=== PATIENT | female | born 1975 | race Caucasian/White ===

== ENCOUNTER 2022-10-25 08:47 | Outpatient (CLI) | payer OTHER, SELFPAY | END 2022-10-25 08:48 | disposition home or self-care (01) | LOC: OP CLINIC 08:47 | PROVIDERS: PCP Physician Assistant Medical; Visit Provider Surgery | DX: Z12.11 Encounter for screening for malignant neoplasm of colon (principal); K63.5 Polyp of colon | CPT/HCPCS: 45385; 88305; 99153; J2250; J2405; J3010 ==

== ENCOUNTER 2023-02-01 20:23 | Outpatient (CLI) | payer OTHER, SELFPAY | END 2023-02-01 20:24 | disposition home or self-care (01) | LOC: LAB 20:24 | PROVIDERS: PCP Physician Assistant Medical; Visit Provider Orthopaedic Surgery Sports Medicine | DX: Z01.818 Encounter for other preprocedural examination (principal) | CPT/HCPCS: 36415; 86850; 86900; 86901 ==

== ENCOUNTER 2023-02-02 06:05 | Day surgery (SDC) | payer OTHER, SELFPAY ==
[2023-02-02] VITALS (26 sets, daily range): BP systolic 88–134; BP diastolic 54–85; PULSE 62–102; RESP 14–18; TEMP 36–36.6; O2SAT 94–100; BMI 32.0
[2023-02-02] MEDS: OXYCODONE (CR) 10 MG TAB.ER.12H PO (06:33)
[2023-02-02] MEDS: ACETAMINOPHEN 500 MG TABLET 1000 MG PO ×3 (06:33→20:10)
[2023-02-02] MEDS: SODIUM CHLORIDE 0.9 % (FLUSH) 10 ML SYRINGE IVF (06:45)
[2023-02-02] MEDS: LACTATED RINGERS 1000 ML 1,000 ML 100 ML IV ×3 (06:45→09:45)
[2023-02-02] MEDS: SCOPOLAMINE 1 MG/3 DAY PATCH 1 PATCH TRANSDERMA (07:15)
[2023-02-02] MEDS: MIDAZOLAM HCL 1 MG/ML inj IVP (07:18)
[2023-02-02] MEDS: fentaNYL 100 MCG/2 ML inj IVP (07:18)
--- NOTE | 2023-02-02 07:27 | CRLHL7_ITS ---
For Patients: As a result of the Cures Act, medical imaging exams and procedure reports are released immediately into your electronic medical record. You may view this report before your referring provider. If you have questions, please contact your health care provider. Indication: S/P TOTAL HIP ARTHROPLASTY Technique: AP hip centered pelvis and lateral view right hip Findings/Impression: Hardware from a right total hip arthroplasty is in satisfactory position. Bone alignment is normal. No sign of acute fracture. Postop changes are within normal limits. Dictated by Sree Wiggins MD @ 02/02/2023 10:59:27 AM (Electronically Signed)
--- NOTE | 2023-02-02 07:30 | CRLHL7_ITS ---
For Patients: As a result of the Cures Act, medical imaging exams and procedure reports are released immediately into your electronic medical record. You may view this report before your referring provider. If you have questions, please contact your health care provider. Indication: Hip replacement surgery Technique: AP hip fluoroscopic image. Fluoroscopy time 43.6 seconds. Findings/Impression: Hardware from a right total hip arthroplasty is in satisfactory position. Dictated by Sree Wiggins MD @ 02/02/2023 9:40:23 AM (Electronically Signed)
--- NOTE | 2023-02-02 07:32 | SUR.PREOP ---
TIME?OUT:?0717 PT/RN/MDA?VERIFICATION?OF?SURGICAL?SITE,?PROCEDURE,?AND?CONSENT OBTAINED?PRIOR?TO?INVASIVE?PROCEDURE. all in agreement.
[2023-02-02] MEDS: CEFAZOLIN 2 GM in 0.9 % SODIUM CHLORIDE Mini-bag 100 ML IVPB ×2 (07:40→14:30)
[2023-02-02] MEDS: TRANEXAMIC ACID 100 MG/ML INJ 1000 MG IV (07:45)
--- NOTE | 2023-02-02 09:20 | P.ORPRC_ITS ---
Procedure Note Date of procedure: 02/02/23 Procedure: PREOPERATIVE DIAGNOSIS: 1. Right hip osteoarthritis, severe, primary POSTOPERATIVE DIAGNOSIS: 1. Right hip osteoarthritis, severe, primary PROCEDURE: 1. Right total hip arthroplasty-anterior approach 2. 33642 - intraoperative fluoroscopy up to 1 hour. SURGEON: Leo Snyder MD. SYSTEMS APPLICATIONS PROGRAMMING LEAD: Quinton Ortiz Pac; Naty Chen Pac - Of note, a skilled assistant professor of physics was critical for this case to aid in patient positioning, tissue retraction, limb manipulation/positioning, and closure. ANESTHESIA: Spinal anesthetic EBL: 400 mL IMPLANTS: DePuy J&J uncemented total hip [place] cup size 48, hole eliminator, +0 neutral liner Actis stem, standard offset, size 3 +1 mm ceramic 32mm head COMPLICATIONS: None evident INDICATIONS: The patient is a pleasant 47-year-old who has experienced severe right hip pain and difficulty bearing weight. Workup included x-rays which revealed severe osteoarthrosis in the hip. Given the deformity, the dysfunction, and the pain, as well as the failure of nonoperative management, recommendation was made for surgery. FINDINGS: Full-thickness chondral loss broadly through the femoral head. Anterior and lateral acetabular osteophytes along with significant chondromalacia. Small effusion upon entering the joint DESCRIPTION OF PROCEDURE: Following a thorough discussion of risks, benefits, and alternatives consent was obtained and the right hip was marked. The patient was brought to the operating room and placed supine on the operating table. Induction of anesthesia was undertaken. 2 g IV Ancef and 1 g tranexamic acid was administered within 1 hr of incision preoperatively. Proper time-out was performed identifying proper patient, site, procedure. The operative extremity was prepped and draped in the appropriate sterile fashion using ChloraPrep after the patient was positioned on the [place] table with head in neutral alignment and all bony prominences well padded. C-arm fluoroscopic imaging was utilized to confirm proper pelvis rotation and position, and to get true AP films of both the contralateral left, and the affected right hip. This is for comparison. A longitudinal incision was made starting approximately 1 cm distal to the ASIS, and 3-4 cm lateral. The incision was extended distally aiming toward the lateral border the patella. Sharp incision through skin and bovie cautery through the subcutaneous tissue allowed identification of the TFL fascia. This was sharply divided, and the fascia bluntly released from the muscle fibers as we dissected medial. Upon coming to the medial border, we were able to retract the TFL laterally, and penetrated the deeper fascia and identify the crossing circumflex vessels. These were ligated/cauterized. The rectus was elevated from the capsule, and retractors placed laterally and medially along the femoral neck to help with visualization of the capsule. We then performed an inverted T capsulotomy. The capsule was tagged for later repair. Retractors were placed inside the capsule. The femoral neck was visualized after releasing medially down to the lesser trochanter, along the saddle laterally, and up onto the acetabulum. The femoral neck cut was made in line with our preoperative templating. The head was removed in a single piece, and sized. We turned our attention to acetabular preparation. Initially, the labrum was resected from around the perimeter, the pulvinar was excised, allowing us to visualize the false wall. We started the reaming with a 43 mm reamer. This was medialized down to the true wall. We then enlarged our reamers sequentially up to one size less than the selected cup size. We trialed at the same size and found it to have an excellent fit. The selected cup was then opened, inserted, and impacted in line with the goal of 40? of abduction, and 20-25? of anteversion. This was confirmed on C-arm fluoroscopic imaging to be in the appropriate/goal position. Once the cup was placed we placed a hole eliminator and a liner consistent with preop planning. Attention was turned to the femoral preparation. The limb was extended, externally rotated, and adducted. The posteromedial capsule was released, as retractors were placed allowing excellent access to the proximal femur. Initially a box spinner was followed by canal finder followed by various broaches. We broached sequentially up to the size noted above, found it to have excellent rotational control, and trialing various heads and necks, revealed that appropriate neck offset, and the above noted head size provided the greatest stability, and yarsanism of length, and offset. C-arm fluoroscopic imaging confirmed position of the stem, as well as leg lengths, which were compared with the pre procedure all fluoroscopic images. Trial implants were removed, the real femoral stem inserted, as was the appropriate head. After reducing, the leg was placed through range of motion and stability was confirmed anterior, posterior, and lateral. A 3 min Betadine soak was then performed, and thorough irrigation with normal saline followed. Closure of the capsule was performed with #1 PDS. Bleeding was confirmed to be controlled at this stage, and the TFL fascia was closed with #0 strata fix. Subcutaneous, and subcuticular closure was performed with 2-0 Vicryl and 4-0 Monocryl, respectively. Dressings were applied, and the patient was awoken from anesthesia and transferred the PACU in stable condition. A skilled assistant professor of physics was critical for this case to aid in patient positioning, tissue retraction, acetabular and proximal femoral exposure, limb manipulation/positioning, dislocation/relocation, patient safety, and closure. PLAN: 1. Weight bear as tolerated operative extremity. 2. Single dose of perioperative antibiotics. 3. Ice. 4. PT/OT consults for ambulation assistance/mobility education. 5. DVT prophylaxis with at SCDs, Evin Hose, and Xarelto x5 days followed by aspirin for a total of 1 month.
[2023-02-02] MEDS: fentaNYL 100 MCG/2 ML inj 50 MCG IVP ×2 (10:11→10:17)
--- NOTE | 2023-02-02 10:13 | W.ANESCHARGE ---
Anesthesia Charges Start Date/Time Anesthesia Start Date: 02/02/23 Anesthesia Start Time: 07:30 Stop Date/Time Anesthesia Stop Date: 02/02/23 Anesthesia Stop Time: 10:12
--- NOTE | 2023-02-02 10:22 | W.ANESCHARGE ---
Anesthesia Charges Start Date/Time Anesthesia Start Date: 02/02/23 Anesthesia Start Time: 07:30 Stop Date/Time Anesthesia Stop Date: 02/02/23 Anesthesia Stop Time: 10:12
--- NOTE | 2023-02-02 10:23 | W.PM.NB ---
Nerve Block Nerve Block Time Seen by Provider: 07:20 Date Seen: 02/02/23 Type of block requested by surgeon for post-operative analgesia: RENE/LFCN Side: right Time out performed: Yes Verification of patient name: Yes Verification of date of : Yes Site marking: site marked Name of person performing procedure: Garth Continuous monitoring Was continuous monitoring of O2 sat, B/P, youth nutritional monitor, recorded every 15 minutes?: Yes Procedure Checklist: sterile prep, needles and gloves Ultrasound guided. Images saved: Yes Medications given in 5ml increments after negative aspiration: Ropivicaine %: 0.5 mL: 30 Needle gauge: 20 Decadron (mg): 10 Precedex (mcg): 25 Patient tolerated procedure well: Yes Additional comments: Needle noted below psoas tendon needle noted adjacent to LFCN Block Charges Block Charge (with Pro Fee): Other Periph Nerve Block Use of Ultrasound Machine for Block: Yes- US Guidance/pain block
--- NOTE | 2023-02-02 13:04 | SUR.PHASEII ---
1240; Pt states she feels full when she point to her bladder. Pt tried using the bedpan without success. Pt stood by edge of bed with walker and 2 assist, pt didn't feel legs were strong enough to pivot to commode. Assisted pt back to bed. Bladder scan for 880cc. Straight cath for 1150cc.
[2023-02-02] MEDS: HYDROCODONE-ACETAMIN 5-325 MG 1 TAB PO (13:11)
--- NOTE | 2023-02-02 13:37 | SUR.PHASEII ---
Pt able to stand with SBA and walker to get dressed. As pt was getting back to bed, pt felt dizzy, nauseated, pale skin. Cold washcloth applied to head, VSS.
[2023-02-02] MEDS: hydrOXYzine pamoate 25 MG CAPSULE PO ×2 (15:08→20:08)
[2023-02-02 16:33] LABS: Hemoglobin* 11.4 gm/dL (12.0-16.0)
--- NOTE | 2023-02-02 16:45 | REH.OT ---
OT: Initially eval planned for 1300, however contacted by [facility] that patient was not yet appropriate to be seen. When returned, PT reports pt had limited activity tolerance with nausea and was unable to complete full PT session. Plan is no longer for return home on POD 0 and is going to med surg floor, OT eval rescheduled to 8/10 am.
[2023-02-02] MEDS: HYDROmorphone 0.5 mg/0.5 ml inj IVP (17:11)
[2023-02-02] MEDS: 0.9 % SODIUM CHLORIDE 250 ml 250 ML IV (17:11)
--- NOTE | 2023-02-02 17:26 | PM.IMPN1 ---
Progress Note: A&P Assessment and plan (1) Osteoarthritis of right hip: Problem details: moderate-severe Status: Chronic Plan 1. s/p Right total hip arthroplasty-anterior approach/ANESTHESIA: Spinal anesthetic/EBL:400 mL 2. Hx of Somatic dysfunction; ?depression/anxiety; continue wellbutrin Subjective Date Seen: 02/02/23 Interval history: PREOPERATIVE DIAGNOSIS: 1. Right hip osteoarthritis, severe, primary PROCEDURE: 1. Right total hip arthroplasty-anterior approach ANESTHESIA: Spinal anesthetic EBL: 400 mL The patient endorsed lightheadedness/dizziness following surgery Endorsed nausea no chest pain or sob Exam Narrative: Exam Narrative: Gen: no acute distress HEENT: NCAT EOMI mmm CV: RRR normal s1 s2 Lungs: CTAB Abd: Soft,nt, nd Neuro: Alert, oriented, CN grossly intact; nonfocal screening?exam Psych: appropriate affect MSK: age appropriate muscle mass; Left shoulder in sling Skin; Warm, dry no rash on face Const: Vital Signs, click to edit/add: Vital Signs - 24 hr 02/02/23 06:58 02/02/23 07:17 02/02/23 07:21 Temperature 97.3 F L Pulse Rate 69 65 66 Respiratory Rate 16 16 16 Blood Pressure 119/60 126/71 111/66 Blood Pressure [Le ft Arm] Pulse Oximetry 100 99 99 Oxygen Delivery Me thod Room Air Nasal Cannula Nasal Cannula Oxygen Flow Rate 2 2 02/02/23 10:08 02/02/23 10:15 02/02/23 10:20 Temperature 97.7 F Pulse Rate 76 67 74 Respiratory Rate 16 18 14 Blood Pressure 118/70 112/61 112/54 L Blood Pressure [Le ft Arm] Pulse Oximetry 94 98 100 Oxygen Delivery Me thod Room Air OxyMask OxyMask Oxygen Flow Rate 10 10 02/02/23 10:25 02/02/23 10:30 02/02/23 10:35 Temperature 97.5 F L Pulse Rate 62 62 69 Respiratory Rate 14 18 16 Blood Pressure 107/62 116/61 102/57 L Blood Pressure [Le ft Arm] Pulse Oximetry 100 99 99 Oxygen Delivery Me thod OxyMask Room Air Room Air Oxygen Flow Rate 6 02/02/23 10:41 02/02/23 10:45 02/02/23 10:48 Temperature 97.4 F L 96.8 F L Pulse Rate 67 68 65 Respiratory Rate 16 16 16 Blood Pressure 110/66 114/64 106/69 Blood Pressure [Le ft Arm] Pulse Oximetry 99 99 99 Oxygen Delivery Me thod Room Air Room Air Room Air Oxygen Flow Rate 02/02/23 11:00 02/02/23 11:15 02/02/23 11:30 Temperature Pulse Rate 69 102 H 70 Respiratory Rate 16 16 16 Blood Pressure 101/68 102/63 105/66 Blood Pressure [Le ft Arm] Pulse Oximetry 98 100 98 Oxygen Delivery Me thod Room Air Room Air Room Air Oxygen Flow Rate 02/02/23 11:45 02/02/23 11:46 02/02/23 11:49 Temperature Pulse Rate 93 80 73 Respiratory Rate 16 16 16 Blood Pressure 88/74 L 107/69 114/72 Blood Pressure [Le ft Arm] Pulse Oximetry 98 100 98 Oxygen Delivery Me thod Room Air Room Air Oxygen Flow Rate 02/02/23 12:17 02/02/23 13:28 02/02/23 13:34 Temperature 97.4 F L Pulse Rate 73 88 88 Respiratory Rate 16 16 16 Blood Pressure 116/77 111/66 129/73 Blood Pressure [Le ft Arm] Pulse Oximetry 98 98 95 Oxygen Delivery Me thod Room Air Room Air Room Air Oxygen Flow Rate 02/02/23 15:45 Temperature 97.0 F L Pulse Rate Respiratory Rate 18 Blood Pressure Blood Pressure [Le ft Arm] 134/77 Pulse Oximetry 99 Oxygen Delivery Me thod Room Air Oxygen Flow Rate Labs Labs: Laboratory Results - last 24 hr 02/02/23 16:29 Hgb 11.4 L
--- NOTE | 2023-02-02 18:40 | PC.NURSE ---
End of shift. pt has been very very pleasant. she came to the floor 1536. via a w/c. no nausea. pain 2-09/03. SL is patent. she is alert x4. vss. we did ortho BP and she got dizzy with standing. hgb was rechecked. she got a 250 cc bolus. she was able to walk to the BR with 2 assist walker and GB. and she was able to void. she is eating, drinking and voiding now with no problems. teds are on and plexi are also on. dressing is C/D/I and active ice is on. IS to 2500. pain meds switched to oxycodone per ortho pa. no nausea so far.
[2023-02-02] MEDS: OXYCODONE 5 MG TABLET PO (20:08)
[2023-02-02] MEDS: SENNOSIDES 1 TAB TABLET 2 TAB PO (20:09)
[2023-02-02] MEDS: buPROPion HCL 75 MG TABLET PO (20:09)
--- NOTE | 2023-02-02 22:44 | PC.NURSE ---
Nursing Care Hours: [id number] Pt this shift anxious beginning of shift d/t pain and nausea. Educated pt on use of cool washcloth on head and back of neck when feeling nausea coming on. Gave pain meds with antiemetic and soda crackers, interventions effective. Pain 6/10 decreased to 2/10 after pain meds, and pt denies nausea. Voiding in toilet. Dressing CDI, pedal pulses present bilat, CMS intact. VSS.
[2023-02-03] MEDS: OXYCODONE 5 MG TABLET PO ×4 (00:11→13:23)
[2023-02-03 02:00] VITALS: BP 96/53; PULSE 72; RESP 18; TEMP 36; O2SAT 94
[2023-02-03] MEDS: HYDROmorphone 0.5 mg/0.5 ml inj IVP (03:05)
[2023-02-03] MEDS: ACETAMINOPHEN 500 MG TABLET 1000 MG PO ×2 (04:04→10:05)
--- NOTE | 2023-02-03 05:47 | PC.NURSE ---
End of Shift: Pt AO throughout shift, pleasant and cooperative. Ambulatory with walker, GB, SBA. Continent with bladder, no BM throughout shift. Reported pain ranging 4-8/10. Pt at one point was in tears d/t level of pain and frustration with current condition. Pt is motivated to ambulate and participate in exercises, looking forward to PT today. Breakthrough pain controlled with IV dilauded.
[2023-02-03 08:14] VITALS: BP 143/58; PULSE 81; RESP 18; TEMP 37.3; O2SAT 97
[2023-02-03] MEDS: SENNOSIDES 1 TAB TABLET 2 TAB PO (08:18)
[2023-02-03] MEDS: buPROPion HCL 75 MG TABLET PO (08:18)
[2023-02-03] MEDS: RIVAROXABAN 10 MG TABLET PO (08:19)
[2023-02-03] MEDS: hydrOXYzine pamoate 25 MG CAPSULE PO ×2 (08:49→13:23)
--- NOTE | 2023-02-03 09:19 | P.ORPN_ITS ---
Subjective Subjective Date Seen: 02/03/23 Principal diagnosis: Status postop day 1, right total hip arthroplasty - anterior approach Interval history: Patient reports doing well. Nausea much improved. Pain appears to be under control as well. She was not expecting the postoperative pain to the degree she experienced. No acute events over night. Pain managed with scheduled and PRN medications, ice. DVT prophylaxis: Rivaroxaban, bilateral knee high Evin sto ckings, SCDs, walking. Denies fevers, chills, aches, N/V, CP, SOB/FISHER, or lightheadedness. Ortho Exam Narrative Exam Narrative: -Patient appears comfortable in recliner; no apparent acute distress -Alert and oriented times 3 -Operative hip swollen; soft tissues supple; no obvious erythema. Warmth appropriate -patient has street clothes on, surgical dressing region not assessed -Bilateral calves soft and supple; no significant swelling, edema, tenderness, erythema, discoloration, warmth, or palpable cords -2+ DP/PT pulses, intact dermatomes and myotomes distally (5/5 strength). Numbness about the lateral femoral cutaneous nerve distribution. Const Vital Signs, click to edit/add: Vital Signs - 24 hr 02/02/23 10:08 02/02/23 10:15 02/02/23 10:20 Temperature 97.7 F Pulse Rate 76 67 74 Pulse Rate [Right Pulse Oximeter] Pulse Rate [orthostatic lying Right Radial] Pulse Rate [orthostatic sitting Right Radial] Pulse Rate [orthostatic standing Right Radial] Respiratory Rate 16 18 14 Blood Pressure 118/70 112/61 112/54 L Blood Pressure [Left Arm] Blood Pressure [orthostatic lying] Blood Pressure [orthostatic sitting] Blood Pressure [orthostatic standing] Pulse Oximetry 94 98 100 Oxygen Delivery Method Room Air OxyMask OxyMask Oxygen Flow Rate 10 10 02/02/23 10:25 02/02/23 10:30 02/02/23 10:35 Temperature 97.5 F L Pulse Rate 62 62 69 Pulse Rate [Right Pulse Oximeter] Pulse Rate [orthostatic lying Right Radial] Pulse Rate [orthostatic sitting Right Radial] Pulse Rate [orthostatic standing Right Radial] Respiratory Rate 14 18 16 Blood Pressure 107/62 116/61 102/57 L Blood Pressure [Left Arm] Blood Pressure [orthostatic lying] Blood Pressure [orthostatic sitting] Blood Pressure [orthostatic standing] Pulse Oximetry 100 99 99 Oxygen Delivery Method OxyMask Room Air Room Air Oxygen Flow Rate 6 02/02/23 10:41 02/02/23 10:45 02/02/23 10:48 Temperature 97.4 F L 96.8 F L Pulse Rate 67 68 65 Pulse Rate [Right Pulse Oximeter] Pulse Rate [orthostatic lying Right Radial] Pulse Rate [orthostatic sitting Right Radial] Pulse Rate [orthostatic standing Right Radial] Respiratory Rate 16 16 16 Blood Pressure 110/66 114/64 106/69 Blood Pressure [Left Arm] Blood Pressure [orthostatic lying] Blood Pressure [orthostatic sitting] Blood Pressure [orthostatic standing] Pulse Oximetry 99 99 99 Oxygen Delivery Method Room Air Room Air Room Air Oxygen Flow Rate 02/02/23 11:00 02/02/23 11:15 02/02/23 11:30 Temperature Pulse Rate 69 102 H 70 Pulse Rate [Right Pulse Oximeter] Pulse Rate [orthostatic lying Right Radial] Pulse Rate [orthostatic sitting Right Radial] Pulse Rate [orthostatic standing Right Radial] Respiratory Rate 16 16 16 Blood Pressure 101/68 102/63 105/66 Blood Pressure [Left Arm] Blood Pressure [orthostatic lying] Blood Pressure [orthostatic sitting] Blood Pressure [orthostatic standing] Pulse Oximetry 98 100 98 Oxygen Delivery Method Room Air Room Air Room Air Oxygen Flow Rate 02/02/23 11:45 02/02/23 11:46 02/02/23 11:49 Temperature Pulse Rate 93 80 73 Pulse Rate [Right Pulse Oximeter] Pulse Rate [orthostatic lying Right Radial] Pulse Rate [orthostatic sitting Right Radial] Pulse Rate [orthostatic standing Right Radial] Respiratory Rate 16 16 16 Blood Pressure 88/74 L 107/69 114/72 Blood Pressure [Left Arm] Blood Pressure [orthostatic lying] Blood Pressure [orthostatic sitting] Blood Pressure [orthostatic standing] Pulse Oximetry 98 100 98 Oxygen Delivery Method Room Air Room Air Oxygen Flow Rate 02/02/23 12:17 02/02/23 13:28 02/02/23 13:34 Temperature 97.4 F L Pulse Rate 73 88 88 Pulse Rate [Right Pulse Oximeter] Pulse Rate [orthostatic lying Right Radial] Pulse Rate [orthostatic sitting Right Radial] Pulse Rate [orthostatic standing Right Radial] Respiratory Rate 16 16 16 Blood Pressure 116/77 111/66 129/73 Blood Pressure [Left Arm] Blood Pressure [orthostatic lying] Blood Pressure [orthostatic sitting] Blood Pressure [orthostatic standing] Pulse Oximetry 98 98 95 Oxygen Delivery Method Room Air Room Air Room Air Oxygen Flow Rate 02/02/23 15:45 02/02/23 17:58 02/02/23 19:00 Temperature 97.0 F L 98 F Pulse Rate Pulse Rate [Right Pulse Oximeter] 78 Pulse Rate [orthostatic lying Right Radial] 73 Pulse Rate [orthostatic sitting Right Radial] 77 Pulse Rate [orthostatic standing Right Radial] 90 Respiratory Rate 18 18 Blood Pressure Blood Pressure [Left Arm] 134/77 126/72 Blood Pressure [orthostatic lying] 121/82 Blood Pressure [orthostatic sitting] 132/79 Blood Pressure [orthostatic standing] 133/85 Pulse Oximetry 99 99 Oxygen Delivery Method Room Air Room Air Oxygen Flow Rate 02/02/23 21:32 02/02/23 22:16 02/02/23 23:00 Temperature Pulse Rate Pulse Rate [Right Pulse Oximeter] 78 70 Pulse Rate [orthostatic lying Right Radial] Pulse Rate [orthostatic sitting Right Radial] Pulse Rate [orthostatic standing Right Radial] Respiratory Rate 18 18 Blood Pressure Blood Pressure [Left Arm] Blood Pressure [orthostatic lying] Blood Pressure [orthostatic sitting] Blood Pressure [orthostatic standing] Pulse Oximetry Oxygen Delivery Method CPAP Oxygen Flow Rate 02/03/23 02:00 Temperature 96.8 F L Pulse Rate Pulse Rate [Right Pulse Oximeter] 72 Pulse Rate [orthostatic lying Right Radial] Pulse Rate [orthostatic sitting Right Radial] Pulse Rate [orthostatic standing Right Radial] Respiratory Rate 18 Blood Pressure Blood Pressure [Left Arm] 96/53 L Blood Pressure [orthostatic lying] Blood Pressure [orthostatic sitting] Blood Pressure [orthostatic standing] Pulse Oximetry 94 Oxygen Delivery Method Room Air Oxygen Flow Rate Assessment and Plan Assessment and plan (1) Osteoarthritis of right hip: Problem details: moderate-severe Status: Chronic (2) Status post total hip replacement, right: Problem details: POD 1 right total hip arthroplasty - anterior approach Status: Acute Plan - PT/OT consult for education and assistance. - Prescribed analgesics as needed - we will stay with oxycodone; dis continue/canceled [place] - DVT prophylaxis: Rivaroxaban for total 5 days, followed by 81 mg aspirin by mouth twice daily, bilateral knee high Evin Hose stockings and SCDs - Anticipation is for discharge to home with family today 02/03/2023 if the patient remains medically stable, pain is controlled, and they are safe with mobilization.
[2023-02-03 11:13] LABS: Basophils Absolute Auto 0.04 K/uL (0.00-0.30); Basophils Percent Auto 0.5 % (0.0-3.0); Eosinophils Absolute Auto 0.08 K/uL (0.00-0.50); Hematocrit 30.2 % (33.0-51.0); Hemoglobin* 10.2 gm/dL (12.0-16.0); Immature Granulocytes Abs Auto 0.01 K/uL (0.00-0.30); Immature Granulocytes Pct Auto 0.1 %; Lymphocytes Percent Auto 16.3 % (20-44); Mean Corpuscular HGB Conc 34 gm/dL (32-36); Mean Corpuscular Hemoglobin 31 pg (26-34); Mean Corpuscular Volume 92 fL (80-100); Monocytes Percent Auto 8.4 % (0.0-11.0); Neutrophils Percent Auto 73.7 % (42.0-72.0); Platelet Count* 162 K/uL (140-440); RDW Coefficient of Variation % 12.2 % (11.5-15.5); Red Blood Count 3.27 m/uL (4.00-5.20); White Blood Count* 8.24 K/uL (4.50-11.00)
[2023-02-03 11:15] LABS: Slide Review Reflex No
[2023-02-03] MEDS: SODIUM CHLORIDE 0.9 % (FLUSH) 10 ML SYRINGE IVF (11:16)
[2023-02-03] MEDS: KETOROLAC 30 MG/ML inj IVP (11:16)
[2023-02-03 11:26] LABS: Chloride* 102 mmol/L (96-114)
[2023-02-03 11:27] LABS: Potassium* 3.5 mmol/L (3.6-5.1); Sodium* 135 mmol/L (135-149)
[2023-02-03 11:29] LABS: Carbon Dioxide* 30 mmol/L (20-32); Creatinine* 0.6 mg/dL (0.5-1.5); Est. Creatinine Clearance* 93.82; Estimated Glomerular Filt Rate 110 ml/min
[2023-02-03 11:30] LABS: Blood Urea Nitrogen* 9 mg/dL (5-24); Calcium* 8.4 mg/dL (8.4-10.6); Glucose* 113 mg/dL (60-115)
--- NOTE | 2023-02-03 14:13 | PC.NURSE ---
Pt. ambulating with walker, transfer belt and SBA. Right hip dressing dry and intact. CMS intact. Despite pre-medicating with Oxycodone and scheduled Tylenol pt. experienced increased pain during and after therapy sessions this AM ~ Dr. Snyder notified ~ Toradol IV x 1 administered ~ pain decreased to 2/10. Pt. was able to comfortably participate in afternoon therapy session. Discharged home at 1341 via wheelchair with .
== END 2023-02-03 13:41 | disposition home or self-care (01) ==
LOC: OR 06:06 → MEDSURG 16:07
PROVIDERS: Family Medicine; Hospitalist; PCP Physician Assistant Medical; Visit Provider Orthopaedic Surgery Sports Medicine
PROC: (CPT 27130; principal; 2023-02-02 07:30)
DX: M16.11 Unilateral primary osteoarthritis, right hip (principal); G89.18 Other acute postprocedural pain; R42 Dizziness and giddiness
CPT/HCPCS: 27130; 1214; 36415; 64450; 73501; 76000; 76942; 80048; 85018; 85025; 97110; 97116; 97161; 97165; 97530; 97535; A9270; C1776; J0330; J0690; J1100; J1170; J1885; J2250; J2371; J2405; J2704; J3010; J7050; J7120

== ENCOUNTER 2023-03-03 10:00 | Outpatient (RCR) | payer OTHER, SELFPAY | END 2023-03-03 15:14 | disposition home or self-care (01) | PROVIDERS: PCP Physician Assistant Medical; Visit Provider Orthopaedic Surgery Sports Medicine | DX: M16.11 Unilateral primary osteoarthritis, right hip (principal); Z96.641 Presence of right artificial hip joint; M25.551 Pain in right hip; M62.81 Muscle weakness (generalized); R26.9 Unspecified abnormalities of gait and mobility; Z51.89 Encounter for other specified aftercare | CPT/HCPCS: 97110; 97116; 97161; 97164 ==

== ENCOUNTER 2025-02-27 15:10 | Outpatient (CLI) | payer OTHER, SELFPAY | END 2025-02-27 15:11 | disposition home or self-care (01) | LOC: NFLDREF 03-05 20:29 | PROVIDERS: PCP Physician Assistant Medical; Referring Provider Physician Assistant Medical | DX: R35.0 Frequency of micturition (principal); N39.0 Urinary tract infection, site not specified; R30.0 Dysuria; N76.0 Acute vaginitis; B96.89 Other specified bacterial agents as the cause of diseases classified elsewhere | CPT/HCPCS: 87086 ==